=== PATIENT | female | born 1955 | race Two or more races ===

== ENCOUNTER 2016-10-15 21:53 | Emergency (ER) | payer SELFPAY ==
[2016-10-15 22:25] VITALS: BP 156/94
[2016-10-15] MEDS ORDERED: ONDANSETRON 4 MG TAB.RAPDIS PO ONE (23:22)
[2016-10-15] MEDS ORDERED: MECLIZINE HCL 25 MG TABLET PO ONE (23:22)
--- NOTE | 2016-10-15 23:24 | ER Document Report ---
ED General - General Chief Complaint: Dizziness, can't sleep Stated Complaint: FEELING DIZZY/CANNOT SLEEP Time Seen by Provider: 10/15/16 22:59 Notes: Patient is a 61 year old female that comes emergency department for chief complaint of of a strange floating sensation and lightheadedness that she gets when she turns her head to the side. She states she got up this morning and this evening, she felt a little bit of nausea with it when it happened. She denies any current symptoms. She denies head injury, focal numbness or weakness , visual changes, headache, chest pain, shortness of breath. Patient is on blood pressure medications and medications for hyperlipidemia. She is compliant with her medications. She is Lithuanian-speaking, and [employer] japanese interpreter symptom was used. TRAVEL OUTSIDE OF THE [place] IN LAST 30 DAYS: No - Related Data Allergies/Adverse Reactions: No Known Allergies Allergy (Verified 09/18/15 13:27) Home Medications: Current Home Medications Losartan/Hydrochlorothiazide [Hyzaar 100-25 Tablet] 1 each PO DAILY 10/16/16 [ History] Past Medical History - General Information source: Patient - Social History Smoking Status: Never Smoker Frequency of alcohol use: None Drug Abuse: None Lives with: Family Family History: None, Reviewed & Not Pertinent - Past Medical History Cardiac Medical History: Reports: Hx Hypertension Neurological Medical History: Reports: Hx Seizures Renal/ Medical History: Denies: Hx Peritoneal Dialysis Past Surgical History: Reports: Hx Section - 2, Hx Cholecystectomy - unsure may have been removal gall stones - Immunizations Hx Diphtheria, Pertussis, Tetanus Vaccination: Yes - unknown Review of Systems - Review of Systems Constitutional: No symptoms reported EENT: No symptoms reported Cardiovascular: See HPI Respiratory: No symptoms reported Gastrointestinal: No symptoms reported Genitourinary: No symptoms reported Female Genitourinary: No symptoms reported Musculoskeletal: No symptoms reported Skin: No symptoms reported Hematologic/Lymphatic: No symptoms reported Neurological/Psychological: See HPI Physical Exam - Vital signs Vitals: Temp Pulse BP Pulse Ox 97.8 F 79 156/94 H 98 10/15/16 22:00 10/15/16 22:00 10/15/16 22:00 10/15/16 22:00 Interpretation: Normal - General General appearance: Appears well, Alert In distress: None - Smiling, alert, well-appearing - HEENT Head: Normocephalic, Atraumatic Eyes: Normal Conjunctiva: Normal Extraocular movements intact: Yes Eyelashes: Normal Pupils: PERRL Nasal: Normal Mouth/Lips: Normal Mucous membranes: Normal Pharynx: Normal Neck: Normal - Respiratory Respiratory status: No respiratory distress Chest status: Nontender Breath sounds: Normal Chest palpation: Normal - Cardiovascular Rhythm: Regular Heart sounds: Normal auscultation Murmur: No - Abdominal Inspection: Normal Distension: No distension Bowel sounds: Normal Tenderness: Nontender. No: Tender, Guarding Organomegaly: No organomegaly - Back Back: Normal, Nontender. No: Tender, Vertebra tenderness - Extremities General upper extremity: Normal inspection, Nontender, Normal color, Normal ROM , Normal temperature General lower extremity: Normal inspection, Nontender, Normal color, Normal ROM , Normal temperature, Normal weight bearing. No: Stone's sign - Neurological Neuro grossly intact: Yes Cognition: Normal Orientation: AAOx4 [place] Coma Scale Eye Opening: Spontaneous [place] Coma Scale Verbal: Oriented [place] Coma Scale Motor: Obeys Commands [place] Coma Scale Total: 15 Speech: Normal Motor strength normal: LUE, RUE, LLE, RLE Sensory: Normal - Psychological Associated symptoms: Normal affect, Normal mood - Skin Skin Temperature: Warm Skin Moisture: Dry Skin Color: Normal Course - Re-evaluation Re-evalutation: Patient reevaluated, she states that she actually feels a little bit of the dizziness at this time. She speaks a little bit of Belgian. CBC unremarkable, chemistry shows mild hypokalemia, will supplement, EKG unremarkable, urine unremarkable. No dehydration, anemia, hypoglycemia, or other concerns noted. On reevaluation after medications patient smiling, states that her symptoms resolved. Son is now at bedside, speaks good Belgian, is interpreting, I discussed all results in detail, examination is most consistent with labyrinthitis/vestibulitis, no evidence of intracranial abnormality with normal neurological exam, patient has normal gait, is asymptomatic again. Discussed treatment, follow-up, return precautions, patient and son state understanding and agreement. - Vital Signs Vital signs: Temp Pulse Resp BP Pulse Ox 97.8 F 79 156/94 H 98 10/15/16 22:00 10/15/16 22:00 10/15/16 22:00 10/15/16 22:00 - Laboratory Result Diagrams: 10/15/16 23:33 10/15/16 23:33 Laboratory results interpreted by me: 10/15/16 23:33 Potassium 3.5 L Discharge - Discharge Clinical Impression: Dizziness Condition: Stable Disposition: HOME, SELF-CARE Additional Instructions: Your symptoms and response to treatment are very suggestive of vertigo. This is an inner ear condition, take the prescribed medication to help treat this. Your potassium was slightly low, we have given you a dose tonight. Follow-up with your primary care provider. Return to emergency department for any concerning or worsening symptoms including vomiting, severe headache, weakness on one side of your body, or any other concerning symptoms Prescriptions: Meclizine HCl [Bonine] 25 mg PO TID #24 tab.chew Forms: Return to Work Referrals: [facility] [Primary Care Provider] - Follow up as needed
[2016-10-15 23:45] LABS: ABSOLUTE BASOPHILS # (AUTO) 0.1 10^3/uL (0.0-0.2); ABSOLUTE EOSINOPHILS # (AUTO) 0.2 10^3/uL (0.0-0.6); ABSOLUTE LYMPHOCYTES (AUTO) 3.5 10^3/uL (0.5-4.7); ABSOLUTE MONOCYTES (AUTO) 0.6 10^3/uL (0.1-1.4); ABSOLUTE NEUT (AUTO) 4.6 10^3/uL (1.7-8.2); BASOPHILS % (AUTO) 1.1 % (0-2); EOSINOPHILS % (AUTO) 2.2 % (0-6); HEMATOCRIT 43.7 % (36.0-47.0); HEMOGLOBIN 14.6 g/dL (12.0-15.5); HGB HCT DIFFERENCE 0.1; LYMPHOCYTES % (AUTO) 38.4 % (13-45); MEAN CORPUSCULAR HEMOGLOBIN 30.7 pg (27.0-33.4); MEAN CORPUSCULAR HGB CONC 33.5 g/dL (32.0-36.0); MEAN CORPUSCULAR VOLUME 92 fl (80-97); RED BLOOD COUNT 4.76 10^6/uL (3.72-5.28); RED CELL DISTRIBUTION WIDTH 13.1 % (11.5-14.0); SEGMENTED NEUTROPHILS % (AUTO) 51.3 % (42-78)
[2016-10-15 23:54] LABS: APPEARANCE,URINE CLEAR; BILIRUBIN,URINE NEGATIVE (NEGATIVE); GLUCOSE, URINE NEGATIVE (NEGATIVE); KETONES,URINE NEGATIVE (NEGATIVE); LEUKOCYTE ESTERASE,URINE NEGATIVE (NEGATIVE); NITRITE,URINE NEGATIVE (NEGATIVE); PROTEIN,URINE NEGATIVE (NEGATIVE); URINE SPECIFIC GRAVITY 1.002; UROBILINOGEN,URINE NEGATIVE mg/dL (<2.0)
[2016-10-16] LABS: ANION GAP 11 (5-19); BLOOD UREA NITROGEN 9 mg/dL (7-20); CALCIUM 9.9 mg/dL (8.4-10.2); CARBON DIOXIDE 28 mmol/L (22-30); CHLORIDE 103 mmol/L (98-107); CREATININE RESULT 0.61 mg/dL (0.52-1.25); GLUCOSE 99 mg/dL (75-110); POTASSIUM 3.5 mmol/L (3.6-5.0); SODIUM 141.5 mmol/L (137-145)
[2016-10-16] MEDS ORDERED: POTASSIUM CHLORIDE 10 MEQ TABLET.SA PO ONE (00:17)
--- NOTE | 2016-10-16 08:07 | EKG REPORT ---
SEVERITY:- NORMAL ECG - SINUS RHYTHM : Confirmed by: Mejia Coffey MD 16-Oct-2016 08:07:24
== END 2016-10-16 01:32 | disposition home or self-care (01) ==
LOC: ER 21:53
DX: R42 Dizziness and giddiness (principal); E87.6 Hypokalemia; R11.0 Nausea; I10 Essential (primary) hypertension; E78.5 Hyperlipidemia, unspecified; Z79.899 Other long term (current) drug therapy
CPT/HCPCS: 93005; 99284; 36415; 85025; 80048; 81001; 93010; S0119

== ENCOUNTER 2017-03-07 11:36 | Emergency (ER) | payer MEDICAID ==
[2017-03-07] MEDS ORDERED: LORAZEPAM INJ 2 MG/1 ML VIAL ONE (12:44)
[2017-03-07] MEDS ORDERED: LEVETIRACETAM 1000 MG/NACL-ISO 1,000 MG/100 ML RTUPB IV ONE (12:50)
--- NOTE | 2017-03-07 12:50 | ER Document Report ---
ED Seizure - General Chief Complaint: Probable Seizure Stated Complaint: PROBABLE SEIZURE Time Seen by Provider: 03/07/17 12:07 Notes: 61-year-old female history of seizure disorder 20 years ago. Had a seizure not too long ago. Had another seizure today. Seizure lasted for a while. Fell and hit her head. Complaining of pain on the right side of her head. Currently not on seizure medications. Was recently started on some antibiotics for possible sinus infection. During the initial questioning with the spring tier Joni patient had a grand mal seizure. 2 mg of Ativan was given IV. - HPI Patient complains to provider of: History of seizures Quality of pain: Dull Severity: Moderate Pain Level: 3 Continued on arrival to ED: Yes Can details of seizure be obtained/verified: Yes Current seizure medications: No: Carbamazepine, Gabatin, Keppra, Lamictal, Phenytoin, Phenobarbital, Trileptal, Valproic acid, Vimpat, Other Preceding symptoms/context: denies: Recent illness/fever, Recent alcohol intake , Recent drug use, Sleep deprivation, Missed dose of meds, Changed meds or dosage, Somnolence, Other History of: denies: Brain tumor or mets, CVA, Hydrocephalus, Migraines, TBI, V/ P shunt, Other Character of seizure: Complete loss/conscious, Generalized shaking Post-ictal symptoms: Confusion, Headache Injuries: None Treatment CLOTH [employer] P[employer]ER: No: Advanced airway, Ativan, Valium, Other Associated Symptoms: Confusion - Related Data Allergies/Adverse Reactions: No Known Allergies Allergy (Verified 09/18/15 13:27) Past Medical History - General Information source: Patient - Social History Smoking Status: Former Smoker Chew tobacco use (# tins/day): No Frequency of alcohol use: None Drug Abuse: None Lives with: Family Family History: None, Reviewed & Not Pertinent Patient has suicidal ideation: No Patient has homicidal ideation: No - Past Medical History Cardiac Medical History: Reports: Hx Hypertension Neurological Medical History: Reports: Hx Seizures Renal/ Medical History: Denies: Hx Peritoneal Dialysis Past Surgical History: Reports: Hx Section - 2, Hx Cholecystectomy - unsure may have been removal gall stones - Immunizations Hx Diphtheria, Pertussis, Tetanus Vaccination: Yes - unknown Review of Systems - Review of Systems -: Yes ROS unobtainable due to patient's medical condition Physical Exam - Vital signs Vitals: Pulse 108 H 03/07/17 11:42 Interpretation: Normal - Notes Notes: In my exam patient screamed very loudly and then immediately had a witnessed legitimate seizure. Seizure lasted for 45 seconds the patient postictal. - General General appearance: Appears well, Alert, Other - Patient was alert and then developed seizure now is postictal - HEENT Head: Normocephalic, Atraumatic Eyes: Normal Pupils: PERRL Mucous membranes: Other - There is a laceration/abrasion to the right lateral tongue with small amount of bleeding - Respiratory Respiratory status: No respiratory distress Chest status: Nontender Breath sounds: Normal Chest palpation: Normal - Cardiovascular Rhythm: Regular Heart sounds: Normal auscultation Murmur: No - Abdominal Inspection: Normal Distension: No distension Bowel sounds: Normal Tenderness: Nontender Organomegaly: No organomegaly - Back Back: Normal, Nontender - Extremities General upper extremity: Normal inspection, Nontender, Normal color, Normal ROM , Normal temperature General lower extremity: Normal inspection, Nontender, Normal color, Normal ROM , Normal temperature, Normal weight bearing. No: Stone's sign - Neurological Neuro grossly intact: Yes Cognition: Normal Orientation: Disoriented to events [place] Coma Scale Eye Opening: Spontaneous [place] Coma Scale Verbal: Confused [place] Coma Scale Motor: Localizes to Pain [place] Coma Scale Total: 13 Cranial nerves: Normal Motor strength normal: LUE, RUE, LLE, RLE Sensory: Normal - Psychological Associated symptoms: Normal affect, Normal mood - Skin Skin Temperature: Warm Skin Moisture: Dry Skin Color: Normal Course - Re-evaluation Re-evalutation: 03/07/17 14:20 Patient had witnessed seizure. Will will get head CT, C-spine, labs, Ativan and reassess. She has had a change in her seizure pattern with increased frequency. Will load with Keppra. May need to be admitted with her head injury and repeat seizure. Currently there is no neurologist available. 03/07/17 14:21 Laboratory 03/07/17 03/07/17 03/07/17 11:50 11:50 11:50 WBC 10.9 H RBC 4.68 Hgb 14.7 Hct 43.5 MCV 93 MCH 31.3 MCHC 33.7 RDW 13.4 Plt Count 286 Seg Neutrophils % 52.4 Lymphocytes % 40.4 Monocytes % 4.7 Eosinophils % 1.8 Basophils % 0.7 Absolute Neutrophils 5.7 Absolute Lymphocytes 4.4 Absolute Monocytes 0.5 Absolute Eosinophils 0.2 Absolute Basophils 0.1 Sodium 141.3 Potassium 3.3 L Chloride 102 Carbon Dioxide 26 Anion Gap 13 BUN 17 Creatinine 0.79 Est GFR ( Amer) > 60 Est GFR (Non-Af Amer) > 60 Glucose 121 H Calcium 9.4 Total Bilirubin 0.5 Direct Bilirubin 0.4 Neonat Total Bilirubin Not Reportable Neonat Direct Bilirubin Not Reportable Neonat Indirect Bili Not Reportable AST 25 ALT 28 Alkaline Phosphatase 107 Troponin I 0.054 Total Protein 7.0 Albumin 4.4 Urine Color Urine Appearance Urine pH Ur Specific [place] Urine Protein Urine Glucose (UA) Urine Ketones Urine Blood Urine Nitrite Urine Bilirubin Urine Urobilinogen Ur Leukocyte Esterase Urine WBC (Auto) Urine RBC (Auto) Squamous Epi Cells Auto Urine Mucus (Auto) Urine Ascorbic Acid 03/07/17 13:19 WBC RBC Hgb Hct MCV MCH MCHC RDW Plt Count Seg Neutrophils % Lymphocytes % Monocytes % Eosinophils % Basophils % Absolute Neutrophils Absolute Lymphocytes Absolute Monocytes Absolute Eosinophils Absolute Basophils Sodium Potassium Chloride Carbon Dioxide Anion Gap BUN Creatinine Est GFR ( Amer) Est GFR (Non-Af Amer) Glucose Calcium Total Bilirubin Direct Bilirubin Neonat Total Bilirubin Neonat Direct Bilirubin Neonat Indirect Bili AST ALT Alkaline Phosphatase Troponin I Total Protein Albumin Urine Color YELLOW Urine Appearance CLEAR Urine pH 5.0 Ur Specific [place] 1.017 Urine Protein NEGATIVE Urine Glucose (UA) NEGATIVE Urine Ketones NEGATIVE Urine Blood SMALL H Urine Nitrite NEGATIVE Urine Bilirubin NEGATIVE Urine Urobilinogen NEGATIVE Ur Leukocyte Esterase NEGATIVE Urine WBC (Auto) 1 Urine RBC (Auto) 1 Squamous Epi Cells Auto <1 Urine Mucus (Auto) RARE Urine Ascorbic Acid NEGATIVE 03/07/17 14:28 Patient has a cortical injury on the right hemisphere consistent with a small intraparenchymal bleed according to verbal report by radiologist. Attempting to secure transport immediately at this time. 03/07/17 15:[address] 03/07/17 12:49 IMPRESSION: Degenerative disc disease with mild spondylosis and facet arthropathy. Head CT 03/07/17 12:49 IMPRESSION: There are findings in the right parietal lobe concerning for cortical contusion. EVIDENCE OF ACUTE STROKE: NO. Dr. Nunez is a ER to ER transfer/trauma team. Did not have neuro ICU available here. No neurologist. Will transfer at this time. - Vital Signs Vital signs: Temp Pulse Resp BP Pulse Ox 97.3 F 108 H 20 135/92 H 93 03/07/17 11:55 03/07/17 11:55 03/07/17 13:27 03/07/17 13:27 03/07/17 13:27 - Laboratory Result Diagrams: 03/07/17 11:50 03/07/17 11:50 Laboratory results interpreted by me: 03/07/17 03/07/17 03/07/17 11:50 11:50 13:19 WBC 10.9 H Potassium 3.3 L Glucose 121 H Urine Blood SMALL H Critical Care Note - Critical Care Note Total time excluding time spent on procedures (mins): 90 Comments: Intracranial hemorrhage, seizure disorder Discharge - Discharge Clinical Impression: Contusion of cortex of right cerebral hemisphere, Seizure Condition: Fair Disposition: [facility] Referrals: TANIYA CARODNA MD [Primary Care Provider] - Follow up as needed
[2017-03-07 12:56] LABS: ABSOLUTE BASOPHILS # (AUTO) 0.1 10^3/uL (0.0-0.2); ABSOLUTE EOSINOPHILS # (AUTO) 0.2 10^3/uL (0.0-0.6); ABSOLUTE LYMPHOCYTES (AUTO) 4.4 10^3/uL (0.5-4.7); ABSOLUTE MONOCYTES (AUTO) 0.5 10^3/uL (0.1-1.4); ABSOLUTE NEUT (AUTO) 5.7 10^3/uL (1.7-8.2); BASOPHILS % (AUTO) 0.7 % (0-2); EOSINOPHILS % (AUTO) 1.8 % (0-6); HEMATOCRIT 43.5 % (36.0-47.0); HEMOGLOBIN 14.7 g/dL (12.0-15.5); HGB HCT DIFFERENCE 0.6; LYMPHOCYTES % (AUTO) 40.4 % (13-45); MEAN CORPUSCULAR HEMOGLOBIN 31.3 pg (27.0-33.4); MEAN CORPUSCULAR HGB CONC 33.7 g/dL (32.0-36.0); MEAN CORPUSCULAR VOLUME 93 fl (80-97); MONOCYTES % (AUTO) 4.7 % (3-13); RED BLOOD COUNT 4.68 10^6/uL (3.72-5.28); RED CELL DISTRIBUTION WIDTH 13.4 % (11.5-14.0); SEGMENTED NEUTROPHILS % (AUTO) 52.4 % (42-78); WHITE BLOOD COUNT 10.9 10^3/uL (4.0-10.5)
[2017-03-07 13:28] LABS: ALANINE AMINOTRANSFERASE 28 U/L (9-52); ALBUMIN 4.4 g/dL (3.5-5.0); ALKALINE PHOSPHATASE 107 U/L (38-126); ANION GAP 13 (5-19); ASPARTATE AMINO TRANSFERASE 25 U/L (14-36); BILIRUBIN,DIRECT 0.4 mg/dL (0.0-0.4); BILIRUBIN,TOTAL 0.5 mg/dL (0.2-1.3); BLOOD UREA NITROGEN 17 mg/dL (7-20); CALCIUM 9.4 mg/dL (8.4-10.2); CARBON DIOXIDE 26 mmol/L (22-30); CHLORIDE 102 mmol/L (98-107); CREATININE RESULT 0.79 mg/dL (0.52-1.25); GLUCOSE 121 mg/dL (75-110); POTASSIUM 3.3 mmol/L (3.6-5.0); SODIUM 141.3 mmol/L (137-145)
[2017-03-07 14:00] LABS: APPEARANCE,URINE CLEAR; BILIRUBIN,URINE NEGATIVE (NEGATIVE); GLUCOSE, URINE NEGATIVE (NEGATIVE); KETONES,URINE NEGATIVE (NEGATIVE); LEUKOCYTE ESTERASE,URINE NEGATIVE (NEGATIVE); NITRITE,URINE NEGATIVE (NEGATIVE); PROTEIN,URINE NEGATIVE (NEGATIVE); URINE SPECIFIC GRAVITY 1.017; UROBILINOGEN,URINE NEGATIVE mg/dL (<2.0)
[2017-03-07] MEDS ORDERED: LORAZEPAM INJ 2 MG/1 ML VIAL IV ONE (14:00)
--- NOTE | 2017-03-07 14:28 | RADIOLOGY REPORT (SQ) ---
EXAM DESCRIPTION: CT HEAD WITHOUT COMPLETED DATE/TIME: 03/07/2017 1:54 pm REASON FOR STUDY: seizure, fall, contusion COMPARISON: 06/21/2014 TECHNIQUE: Axial images acquired through the brain without intravenous contrast. Images reviewed wi th bone, brain and subdural windows. Images stored on PACS. All CT scanners at this facility use dose modulation, iterative reconstruction, and/or weight based d osing when appropriate to reduce radiation dose to as low as reasonably achievable (ALARA). [facility]: Dose Right [facility]: CareDose [facility]: Dose Right [facility]: Teradose 4D [facility]: Smart [employer] RADIATION DOSE: CT Rad equipment meets quality standard of care and radiation dose reduction techniq ues were employed. CTDIvol: 64.6 mGy. DLP: 1292 mGy-cm. mGy. LIMITATIONS: None. FINDINGS: VENTRICLES: Normal size and contour. CEREBRUM: There is a limited area of increased attenuation in the periphery of the right parietal lob e seen best on image 29 series 2 through image 32 series 2. Few scattered areas of low density in the white matter most likely chronic small vessel ischemic changes. CEREBELLUM: No masses. No hemorrhage. No alteration of density. No evidence for acute infarction. EXTRAAXIAL SPACES: No fluid collections. No masses. ORBITS AND GLOBE: No intra- or extraconal masses. Normal contour of globe without masses. CALVARIUM: No fracture. PARANASAL SINUSES: No fluid or mucosal thickening. SOFT TISSUES: No mass or hematoma. OTHER: No other significant finding. IMPRESSION: There are findings in the right parietal lobe concerning for cortical contusion. EVIDENCE OF ACUTE STROKE: NO. COMMENT: Findings were discussed with the ordering physician at 0228 hours 1400 hours on this date. Quality ID # [id number]: Final reports with documentation of one or more dose reduction techniques (e.g., Au tomated exposure control, adjustment of the mA and/or kV according to patient size, use of iterative reconstruction technique) TECHNICAL DOCUMENTATION: JOB ID: [id number] [employer]- All Rights Reserved
--- NOTE | 2017-03-07 14:34 | RADIOLOGY REPORT (SQ) ---
EXAM DESCRIPTION: CT CERVICAL SPINE WITHOUT COMPLETED DATE/TIME: 03/07/2017 1:54 pm REASON FOR STUDY: seizure, fall, contusion COMPARISON: None. TECHNIQUE: Axial images acquired through the cervical spine without intravenous contrast. Images re viewed with lung, soft tissue and bone windows. Reconstructed coronal and sagittal MPR images review ed. Images stored on PACS. All CT scanners at this facility use dose modulation, iterative reconstruction, and/or weight based d osing when appropriate to reduce radiation dose to as low as reasonably achievable (ALARA). [facility]: Dose Right [facility]: CareDose [facility]: Dose Right [facility]: Teradose 4D [facility]: Smart [employer] RADIATION DOSE: CT Rad equipment meets quality standard of care and radiation dose reduction techniq ues were employed. CTDIvol: 21.8 mGy. DLP: 460 mGy-cm. mGy. LIMITATIONS: None. FINDINGS: ALIGNMENT: Anatomic. MINERALIZATION: Normal. VERTEBRAL BODIES: No fractures or dislocation. DISCS: Disc spaces are narrowed from C5-C7 with anterior and posterior osteophytes. FACETS, LATERAL MASSES, POSTERIOR ELEMENTS: Hypertrophic facet changes are present on the left at C7- T1. HARDWARE: None in the spine. VISUALIZED RIBS: No fractures. LUNG APICES AND SOFT TISSUES: No significant or acute findings. OTHER: No other significant finding. IMPRESSION: Degenerative disc disease with mild spondylosis and facet arthropathy. TECHNICAL DOCUMENTATION: JOB ID: [id number] Quality ID # [id number]: Final reports with documentation of one or more dose reduction techniques (e.g., Au tomated exposure control, adjustment of the mA and/or kV according to patient size, use of iterative reconstruction technique) 2010 [employer]- All Rights Reserved
--- NOTE | 2017-03-07 14:39 | EKG REPORT ---
SEVERITY:- ABNORMAL ECG - SINUS TACHYCARDIA PROBABLE LEFT ATRIAL ABNORMALITY BORDERLINE LEFT AXIS DEVIATION PROBABLE ANTEROSEPTAL INFARCT, AGE INDETERM : Confirmed by: Heather Michel MD 07-Mar-2017 14:38:08
[2017-03-07 15:24] VITALS: BP 148/86
== END 2017-03-07 15:40 | disposition short-term general hospital (02) ==
LOC: ER 11:36
DX: S06.2X9A Diffuse traumatic brain injury with loss of consciousness of unspecified duration, initial encounter (principal); W18.30XA Fall on same level, unspecified, initial encounter; G40.909 Epilepsy, unspecified, not intractable, without status epilepticus; I10 Essential (primary) hypertension; Z87.891 Personal history of nicotine dependence; Z90.49 Acquired absence of other specified parts of digestive tract
CPT/HCPCS: 93005; 99285; 96375; 96365; 36415; 85025; 80053; 81001; 84484; 70450; 72125; 93010; J2060; J1953

== ENCOUNTER 2018-01-10 17:12 | Emergency (ER) | payer SELFPAY ==
[2018-01-10] MEDS ORDERED: LIDOCAINE 4%/TETRACAINE 0.5%/EPI 0.18% 5 ML TOPICAL SOLN TOP ONE (17:57)
--- NOTE | 2018-01-10 18:44 | ER Document Report ---
ED General - General Chief Complaint: Toothache Stated Complaint: FACIAL PAIN Time Seen by Provider: 01/10/18 17:38 Mode of Arrival: Ambulatory Information source: Patient, Relative Notes: Patient is a 62-year-old morbidly obese female comes emergency room complaining of right-sided nasal pain. Originally the tree has no red facial pain. She is accompanied by a family member who speaks perfect Tongan and speaks Khmer. Patient was speaks broken Tongan. Interpretation is done through the family member. According to report patient states she started with pain on the right side of her nose area about 10 days ago. She has been attempting to use home remedies without any success. She states that it is so sensitive it shoots pain up through her eyes into her head. She is unable to touch the side of her nose specifically when one spot. TRAVEL OUTSIDE OF THE [place] IN LAST 30 DAYS: No - HPI Onset: Other - 10 days Onset/Duration: Gradual, Persistent, Worse Quality of pain: No pain Severity: Severe Pain Level: 4 Associated symptoms: Other - Nasal pain Exacerbated by: Other - Touching Relieved by: Denies Similar symptoms previously: No Recently seen / treated by doctor: No - Related Data Allergies/Adverse Reactions: No Known Allergies Allergy (Verified 01/10/18 17:13) Past Medical History - General Information source: Patient, Relative - Social History Smoking Status: Never Smoker Cigarette use (# per day): No Chew tobacco use (# tins/day): No Smoking Education Provided: No Frequency of alcohol use: None Drug Abuse: None Lives with: Family Family History: None, Reviewed & Not Pertinent Patient has suicidal ideation: No Patient has homicidal ideation: No - Past Medical History Cardiac Medical History: Reports: Hx Hypertension Neurological Medical History: Reports: Hx Seizures Renal/ Medical History: Denies: Hx Peritoneal Dialysis Past Surgical History: Reports: Hx Section - 2, Hx Cholecystectomy - unsure may have been removal gall stones - Immunizations Hx Diphtheria, Pertussis, Tetanus Vaccination: Yes - unknown Review of Systems - Review of Systems Constitutional: No symptoms reported EENT: Nose pain Cardiovascular: No symptoms reported Respiratory: No symptoms reported Gastrointestinal: No symptoms reported Genitourinary: No symptoms reported Female Genitourinary: No symptoms reported Musculoskeletal: No symptoms reported Skin: No symptoms reported Hematologic/Lymphatic: No symptoms reported Neurological/Psychological: No symptoms reported -: Yes All other systems reviewed and negative Physical Exam - Vital signs Vitals: Temp Pulse Resp BP Pulse Ox 98.2 F 89 14 144/90 H 96 01/10/18 17:15 01/10/18 17:15 01/10/18 17:15 01/10/18 17:15 01/10/18 17:15 Interpretation: Normal, Hypertensive - Notes Notes: Patient is well-nourished well-developed moderately obese female. She appears in moderate amount of discomfort. - General General appearance: Alert, Anxious - HEENT Head: Normocephalic, Atraumatic Eyes: Normal Conjunctiva: Normal Ears: Normal External canal: Normal Tympanic membrane: Normal Sinus: Normal Nasal: Swelling, Other - Examination patient's area of pain discomfort shows it to be the right side of the nose. Specifically just above the crease. It is exceptionally sensitive to touch. Light touch send the patient off the bed. Further exam of the internal nare in the right side shows moderate amount of hair but no other really major abnormalities that can be seen with with the autoscope. Hyper illumination from the inside out shows some thickening in the area where she is sensitive. There is no sign of any lesions apparent to shingles. The hypersensitive area seems to only be on the outside compressing from the inside there is no notable sensitivity or pain. Manipulation around the area causes apprehension but does not cause any pain until you hit that specific spot.. No: Normal, Clear rhinorrhea Mouth/Lips: Normal Mucous membranes: Normal Pharynx: Normal - Respiratory Respiratory status: No respiratory distress Chest status: Nontender Breath sounds: Normal. No: Rales, Rhonchi, Stridor, Wheezing Chest palpation: Normal - Cardiovascular Rhythm: Regular Heart sounds: Normal auscultation Murmur: No - Neurological Neuro grossly intact: Yes Cognition: Normal Orientation: AAOx4 Racquel Coma Scale Eye Opening: Spontaneous Racquel Coma Scale Verbal: Oriented [place] Coma Scale Motor: Obeys Commands [place] Coma Scale Total: 15 Speech: Normal - Skin Skin Temperature: Warm Skin Moisture: Dry Skin Color: Normal, Other - The area around the right lateral side of the nose shows some mild thickening but no overt infectious type findings. Reexamination underneath the nose and in the nare does show some erythematous areas that are questionable for a cellulitic type presentation. Course - Re-evaluation Re-evalutation: 01/10/18 18:47 After my examination I was not sure which direction to go into. I went and consulted with and he came in and reexamined the patient with me. He was as stone as I was at first. We elected to apply let to the area both inside and outside which did reduce patient's pain substantially. Reexamination we still feel this is a folliculitis type presentation and we will put her on lidocaine for numbing sensation. We will also add Bactrim for infectious purposes. And we will place her on some gabapentin for bed. We will have her return to ER if this does not work. She is also use warm compresses 3 times a day. - Vital Signs Vital signs: Temp Pulse Resp BP Pulse Ox 98.2 F 89 14 144/90 H 96 01/10/18 17:15 01/10/18 17:15 01/10/18 17:15 01/10/18 17:15 01/10/18 17:15 Discharge - Discharge Clinical Impression: Nasal folliculitis Condition: Stable Disposition: HOME, SELF-CARE Instructions: Folliculitis ([facility]) Additional Instructions: Home and rest. Medication as prescribed. Use the lidocaine gel as needed for numbing purposes. You may apply to 3 times a day. Also apply warm moist compresses to the area 3-4 times a day. For 10-15 minutes. Take the gabapentin at night before bed for sleep. And the pain medication as needed. Return to ER if you have any concerns or problems or if it does not seem to be getting better after the first 48 hours. Also highly suggest follow-up with your primary care for further investigation if we have not solve this problem totally. Prescriptions: Gabapentin 800 mg PO HSP PRN #30 capsule PRN Reason: Hydrocodone/Acetaminophen [Meldrim 5-325 mg Tablet] 1 tab PO Q6 #12 tablet Sulfamethoxazole/Trimethoprim [Bactrim Ds Tablet] 1 each PO BID #20 tablet
[2018-01-10] MEDS ORDERED: LIDOCAINE 2% JELLY 30 ML TUBE TOP ONE (18:56)
[2018-01-10] MEDS ORDERED: LIDOCAINE 2% JELLY 5 ML TUBE ONE (19:38)
[2018-01-10 20:06] VITALS: BP 136/89
== END 2018-01-10 20:07 | disposition home or self-care (01) ==
LOC: ER 17:12
DX: L73.9 Follicular disorder, unspecified (principal); E66.01 Morbid (severe) obesity due to excess calories; Z68.29 Body mass index [BMI] 29.0-29.9, adult; I10 Essential (primary) hypertension
CPT/HCPCS: 99282; J3490

== ENCOUNTER 2018-02-28 18:26 | Emergency (ER) | payer SELFPAY ==
--- NOTE | 2018-02-28 20:08 | ER Document Report ---
ED Extremity Problem, Upper - General Chief Complaint: Shoulder Injury Stated Complaint: COLLARBONE PAIN/SWELLING Time Seen by Provider: 02/28/18 19:33 Mode of Arrival: Ambulatory Information source: Patient, Relative Notes: History translated with the help of son at bedside. Patient is a Icelandic speaker. Patient given option of clinical nurse services and declined, preferred for son to translate. Patient is seated comfortably in bed in no acute distress, with even and unlabored breathing. Patient is a 62-year-old female presenting to the emergency department work for left-sided collarbone pain for 3 days with no history of injury to the area. 3 days ago she woke up with the pain and felt that her shoulder and trapezius area were slightly more swollen than usual, and her range of motion was limited in that shoulder. She describes the pain as aching and tight. She denies all other systemic symptoms including fever, headache, nausea and vomiting. She has tried using icy hot and warm rags on the area but it has not helped. Pain is worsened with movement and alleviated with rest. She has experienced pain like this before in her right collarbone. She has a PCP who she sees regularly. TRAVEL OUTSIDE OF THE [place] IN LAST 30 DAYS: No - HPI Patient complains to provider of: Pain, Swelling, Left, Clavicle, Shoulder Onset: Other Recent injury: No Where: Home Quality of pain: Achy Severity of pain: Moderate Pain Level: 2 Associated symptoms: None Exacerbated by: Movement Relieved by: Rest Similar symptoms previously: Yes - similar symptoms in R clavicle Recently seen / treated by doctor: No - Related Data Allergies/Adverse Reactions: No Known Allergies Allergy (Verified 02/28/18 18:30) Home Medications: losartan-hctz, diazepam Past Medical History - General Information source: Relative - Social History Smoking Status: Former Smoker Cigarette use (# per day): No - has 7.5 py Frequency of alcohol use: None Drug Abuse: None Occupation: works in kitchen Lives with: Family Family History: None, Reviewed & Not Pertinent Patient has suicidal ideation: No Patient has homicidal ideation: No - Medical History Notes: seizure 1 year ago with fall and intracranial hemorrhage, HTN - Past Medical History Cardiac Medical History: Reports: Hx Hypertension Pulmonary Medical History: Reports: None EENT Medical History: Reports: None Neurological Medical History: Reports: Hx Seizures Endocrine Medical History: Reports: None Renal/ Medical History: Reports: None. Denies: Hx Peritoneal Dialysis Malignancy Medical History: Reports: None GI Medical History: Reports: None Musculoskeletal Medical History: Reports None Skin Medical History: Reports None Psychiatric Medical History: Reports: None Traumatic Medical History: Reports: Other - intracranial hemorrhage after fall during seizure Infectious Medical History: Reports: None Past Surgical History: Reports: Hx Section - 2, Hx Cholecystectomy - unsure may have been removal gall stones - Immunizations Hx Diphtheria, Pertussis, Tetanus Vaccination: Yes - unknown Review of Systems - Review of Systems Constitutional: No symptoms reported. denies: Fever, Recent illness EENT: No symptoms reported Cardiovascular: No symptoms reported Respiratory: No symptoms reported Gastrointestinal: No symptoms reported Genitourinary: No symptoms reported Female Genitourinary: No symptoms reported Musculoskeletal: See HPI, Muscle stiffness Skin: No symptoms reported Hematologic/Lymphatic: No symptoms reported Neurological/Psychological: No symptoms reported. denies: Weakness, Headaches Physical Exam - Vital signs Vitals: Temp Pulse Resp BP Pulse Ox 97.8 F 97 20 148/81 H 100 02/28/18 18:56 02/28/18 18:56 02/28/18 18:56 02/28/18 18:56 02/28/18 18:56 - General General appearance: Appears well, Alert In distress: None - HEENT Head: Normocephalic, Atraumatic Eyes: Normal Extraocular movements intact: Yes - Respiratory Respiratory status: No respiratory distress Chest status: Nontender Breath sounds: Normal Chest palpation: Normal - Cardiovascular Rhythm: Regular Heart sounds: Normal auscultation, S1 appreciated, S2 appreciated Murmur: No Normal capillary refill: Yes - Abdominal Inspection: Normal Distension: No distension - Back Back: Normal, Nontender - Extremities General upper extremity: Other - Left shoulder has mild erythema noted along the superior portion of the trapezius, 2x 1 cm lesions noted along left lateral portion of the collarbone, no swelling noted along either clavicle, both shoulders show no deformities, left shoulder range of motion intact but pain noted with adduction past 90 degrees and forward extension past 90 degreees, right shoulder range of motion intact - Neurological Neuro grossly intact: Yes Cognition: Normal Orientation: AAOx4 Racquel Coma Scale Eye Opening: Spontaneous Racquel Coma Scale Verbal: Oriented [place] Coma Scale Motor: Obeys Commands [place] Coma Scale Total: 15 - Psychological Associated symptoms: Normal affect, Normal mood - Skin Skin Temperature: Warm Skin Moisture: Dry Skin Color: Normal Skin irregularity: Lesion Location of irregularity: Other - L lateral clavicle on superior aspect Character of irregularity: Macular, Papular Course - Re-evaluation Re-evalutation: 02/28/18 20:45 Patient with what appears to be musculoskeletal pain to the left trapezius area. Pain is reproduced with movement of left upper extremity and left lateral rotation of the head. No meningismus. No shoulder tenderness. No chest pain or dyspnea. Patient does have faint erythematous skin rash over the area of tenderness that is concerning for possible early shingles. Discussed this possibility with patient and decision was made to start antiviral medication but also to cover with pain medicine to help with her musculoskeletal pain. - Vital Signs Vital signs: Temp Pulse Resp BP Pulse Ox 98.0 F 89 20 139/77 H 99 02/28/18 20:58 02/28/18 20:58 02/28/18 20:58 02/28/18 20:58 02/28/18 20:58 Discharge - Discharge Clinical Impression: Muscle spasm of left shoulder, Pain of left clavicle, Skin rash Condition: Stable Disposition: HOME, SELF-CARE Instructions: Muscle Relaxers ([facility]), Muscle Strain ([facility]), Shingles ([facility]) Additional Instructions: Return immediately for any new or worsening symptoms Followup with your primary care provider, call tomorrow to make a followup appointment You may use topical [id number] lidocaine patch to help with your pain symptoms. Prescriptions: Cyclobenzaprine HCl [Flexeril 10 Mg Tablet] 10 mg PO TID #15 tablet Valacyclovir HCl [Valacyclovir] 1,000 mg PO TID PRN #21 tablet PRN Reason: Referrals: KATHIA RUIZ MD [ACTIVE STAFF] - 03/02/18
[2018-02-28] MEDS ORDERED: LIDOCAINE 5% (700 MG) TRANSDERMAL ADH..PATCH TP ONE (20:41)
[2018-02-28] MEDS ORDERED: VALACYCLOVIR HCL 500 MG TABLET PO ONE (20:41)
[2018-02-28] MEDS ORDERED: CYCLOBENZAPRINE HCL 10 MG TABLET PO ONE (20:41)
[2018-02-28 21:01] VITALS: BP 139/77
== END 2018-02-28 21:01 | disposition home or self-care (01) ==
LOC: ER 18:26
DX: M25.512 Pain in left shoulder (principal); R21 Rash and other nonspecific skin eruption; M62.838 Other muscle spasm; I10 Essential (primary) hypertension; Z90.49 Acquired absence of other specified parts of digestive tract
CPT/HCPCS: 99283

== ENCOUNTER 2019-08-09 13:22 | Emergency (ER) | payer MEDICARE, MEDICAID ==
--- NOTE | 2019-08-09 13:42 | ER Document Report ---
ED Medical Screen (RME) - General Chief Complaint: Toothache Stated Complaint: MOUTH/FACIAL PAIN Time Seen by Provider: 08/09/19 13:28 Mode of Arrival: Ambulatory Information source: Patient Notes: 64-year-old Upper Sorbian-speaking woman presents to the emergency department chief complaint of right-sided facial swelling. [employer] service was used for patient interview. Patient reports pain ongoing for the last few days, states pain and discomfort radiates up into her right cheek, nose and behind her eye. She denies any dental pain. She denies any fever or drainage from any of the areas of discomfort. She states she has never had anything like this before. No obvious swelling noted in triage. Tenderness upon palpation over maxillary sinuses. I have greeted and performed a rapid initial assessment of this patient. A comprehensive ED assessment and evaluation of the patient, analysis of test results and completion of the medical decision making process will be conducted by additional ED providers. I have specifically instructed the patient or family members with the patient to immediately return to any nursing staff should anything change in the patient's condition or with their chief complaint. TRAVEL OUTSIDE OF THE [place] IN LAST 30 DAYS: No - Related Data Allergies/Adverse Reactions: No Known Allergies Allergy (Verified 02/28/18 18:30) Past Medical History - Past Medical History Cardiac Medical History: Reports: Hx Hypertension Neurological Medical History: Reports: Hx Seizures Renal/ Medical History: Denies: Hx Peritoneal Dialysis Past Surgical History: Reports: Hx Section - 2, Hx Cholecystectomy - unsure may have been removal gall stones - Immunizations Hx Diphtheria, Pertussis, Tetanus Vaccination: Yes - unknown
[2019-08-09] MEDS ORDERED: KETOROLAC TROMETHAMINE INJ/PF 30 MG/1 ML SDV IV ONE (14:31)
[2019-08-09 14:38] LABS: ABSOLUTE BASOPHILS # (AUTO) 0.1 10^3/uL (0.0-0.2); ABSOLUTE EOSINOPHILS # (AUTO) 0.1 10^3/uL (0.0-0.6); ABSOLUTE LYMPHOCYTES (AUTO) 2.7 10^3/uL (0.5-4.7); ABSOLUTE MONOCYTES (AUTO) 0.6 10^3/uL (0.1-1.4); ABSOLUTE NEUT (AUTO) 4.7 10^3/uL (1.7-8.2); BASOPHILS % (AUTO) 1.2 % (0-2); EOSINOPHILS % (AUTO) 1.3 % (0-6); HEMATOCRIT 41.2 % (36.0-47.0); LYMPHOCYTES % (AUTO) 33.4 % (13-45); MEAN CORPUSCULAR HEMOGLOBIN 30.8 pg (27.0-33.4); MEAN CORPUSCULAR VOLUME 91 fl (80-97); MONOCYTES % (AUTO) 6.8 % (3-13); PLATELET COUNT 286 10^3/uL (150-450); RED BLOOD COUNT 4.56 10^6/uL (3.72-5.28); RED CELL DISTRIBUTION WIDTH 13.7 % (11.5-14.0); SEGMENTED NEUTROPHILS % (AUTO) 57.3 % (42-78); TOTAL CELLS COUNTED % (AUTO) 100 %; WHITE BLOOD COUNT 8.2 10^3/uL (4.0-10.5)
[2019-08-09 15:05] LABS: ALBUMIN 4.1 g/dL (3.5-5.0); ALKALINE PHOSPHATASE 99 U/L (38-126); ASPARTATE AMINO TRANSFERASE 28 U/L (14-36); BILIRUBIN,TOTAL 0.5 mg/dL (0.2-1.3); BLOOD UREA NITROGEN 8 mg/dL (7-20); CALCIUM 9.3 mg/dL (8.4-10.2); GLUCOSE 113 mg/dL (75-110); POTASSIUM 4.6 mmol/L (3.6-5.0); TOTAL PROTEIN 7.4 g/dL (6.3-8.2)
[2019-08-09 15:10] LABS: ANION GAP 6 (5-19); CARBON DIOXIDE 30 mmol/L (22-30); CHLORIDE 103 mmol/L (98-107)
--- NOTE | 2019-08-09 15:10 | ER Document Report ---
ED General - General Chief Complaint: Facial Swelling Stated Complaint: MOUTH/FACIAL PAIN Time Seen by Provider: 08/09/19 13:28 Mode of Arrival: Ambulatory TRAVEL OUTSIDE OF THE [place] IN LAST 30 DAYS: No - HPI Notes: Patient presents with several days of right-sided face pain. She states that she has severe facial pain. It is worse when being touched and better if not touched. She denies any vision changes. No vomiting. No fevers. No cough or congestion. No known COVID virus exposures. She states she has had no trauma to this area. She states she has felt congested. The pain radiates throughout the right side of her face and is severe. It is a sharp sensation. No significant vision changes. - Related Data Allergies/Adverse Reactions: No Known Allergies Allergy (Verified 02/28/18 18:30) Past Medical History - General Information source: Patient - Social History Smoking Status: Former Smoker Frequency of alcohol use: None Drug Abuse: None Family History: None, Reviewed & Not Pertinent Patient has suicidal ideation: No Patient has homicidal ideation: No - Past Medical History Cardiac Medical History: Reports: Hx Hypertension Neurological Medical History: Reports: Hx Seizures Renal/ Medical History: Denies: Hx Peritoneal Dialysis Past Surgical History: Reports: Hx Section - 2, Hx Cholecystectomy - unsure may have been removal gall stones - Immunizations Hx Diphtheria, Pertussis, Tetanus Vaccination: Yes - unknown Review of Systems - Review of Systems Constitutional: denies: Chills, Fever Cardiovascular: denies: Chest pain, Dyspnea Respiratory: denies: Cough, Short of breath -: Yes All other systems reviewed and negative Physical Exam - Vital signs Vitals: Temp Pulse Resp BP Pulse Ox 98.0 F 86 18 198/105 H 98 08/09/19 13:29 08/09/19 13:29 08/09/19 13:29 08/09/19 13:29 08/09/19 13:29 Interpretation: Hypertensive - General General appearance: Appears well, Alert - HEENT Head: Normocephalic, Atraumatic Eyes: Normal Conjunctiva: Normal Cornea: Normal Eyelashes: Normal Pupils: PERRL Nasal: Normal Mouth/Lips: Normal Mucous membranes: Moist Pharynx: Normal Neck: Normal Notes: The face has a normal inspection bilaterally. No significant swelling is appreciated. However she has severe pain to any touch to the maxillary and frontal areas on the right side. The mandibular area on the right side is not tender. - Respiratory Respiratory status: No respiratory distress Chest status: Nontender Breath sounds: Normal Chest palpation: Normal - Cardiovascular Rhythm: Regular Heart sounds: Normal auscultation Murmur: No - Abdominal Inspection: Normal Distension: No distension Bowel sounds: Normal Tenderness: Nontender Organomegaly: No organomegaly - Back Back: Normal, Nontender - Extremities General upper extremity: Normal inspection, Nontender, Normal color, Normal ROM, Normal temperature General lower extremity: Normal inspection, Nontender, Normal color, Normal ROM, Normal temperature, Normal weight bearing. No: Stone's sign - Neurological Neuro grossly intact: Yes Cognition: Normal Orientation: AAOx4 Racquel Coma Scale Eye Opening: Spontaneous Racquel Coma Scale Verbal: Oriented [place] Coma Scale Motor: Obeys Commands Racquel Coma Scale Total: 15 Speech: Normal Motor strength normal: LUE, RUE, LLE, RLE Sensory: Normal - Psychological Associated symptoms: Normal affect, Normal mood - Skin Skin Temperature: Warm Skin Moisture: Dry Skin Color: Normal Course - Re-evaluation Re-evalutation: 08/09/19 16:58 Patient presents with right-sided facial pain. She has no evidence of infectious process. No evidence of tooth abnormality. No evidence of sinus abnormality. Her presentation is not consistent with allergic reaction. I see no evidence of any significant abnormality on exam. Laboratories are essentially unremarkable. CT is also unremarkable. At this time I am going to treat her for trigeminal neuralgia and refer her to neurology. Because am unsure how have the exact diagnosis I have stressed to her the importance of follow-up and that if she is unable to arrange for that she is to return to the emergency department for follow-up. going to give keflex just in case early tooth infection that is not evident on exam. pt will not allow me to examine teeth due to pain and grabs my hand everytime I try to exam oral cavity. 08/09/19 17:00 - Vital Signs Vital signs: Temp Pulse Resp BP Pulse Ox 98.0 F 86 18 198/105 H 98 08/09/19 13:29 08/09/19 13:29 08/09/19 13:29 08/09/19 13:29 08/09/19 13:29 - Laboratory Result Diagrams: 08/09/19 14:15 08/09/19 14:15 Laboratory results interpreted by me: 08/09/19 14:15 Glucose 113 H - Diagnostic Test Radiology reviewed: Image reviewed, Reports reviewed Discharge - Discharge Clinical Impression: Trigeminal neuralgia of right side of face Condition: Stable Disposition: HOME, SELF-CARE Instructions: Oral Narcotic Medication ([facility]) Additional Instructions: Please follow up with Dr. Herman within the next week. If you are unable to see Dr. Herman in the next week, then please return to the emergency department for a recheck. Prescriptions: Cephalexin Monohydrate [Keflex 500 mg Capsule] 500 mg PO Q6H 7 Days #28 capsule Hydrocodone/Acetaminophen [[place] 5-325 mg Tablet] 1 tab PO Q6 PRN 3 Days #12 tablet PRN Reason: Referrals: YARIEL HERMAN MD [COMMUNITY BASED STAFF] - Follow up in 1 week
--- NOTE | 2019-08-09 16:00 | RADIOLOGY REPORT (SQ) ---
EXAM DESCRIPTION: CT FACIAL AREA WITH IMAGES COMPLETED DATE/TIME: 08/09/2019 2:33 pm REASON FOR STUDY: facial pain. Pain around the right orbit and cheek. No reported injury. COMPARISON: CT head, 03/07/2017. TECHNIQUE: Post contrast images through the facial bones and orbits windowed for bone and soft tissu e. Additional coronal and sagittal reconstructed images reviewed. All images stored on PACS. All CT scanners at this facility use dose modulation, iterative reconstruction, and/or weight based d osing when appropriate to reduce radiation dose to as low as reasonably achievable (ALARA). [facility]: Dose Right [facility]: CareDose [facility]: Dose Right [facility]: Teradose 4D [facility]: YeahMobi CONTRAST TYPE AND DOSE: contrast/concentration: Isovue 350.00 mg/ml; Total Contrast Delivered: 75.0 ml; Total Saline Delivered: 55.0 ml RENAL FUNCTION: GFR > 60. RADIATION DOSE: CT Rad equipment meets quality standard of care and radiation dose reduction techniq ues were employed. CTDIvol: 30.4 mGy. DLP: 597 mGy-cm. . LIMITATIONS: None. FINDINGS: FACIAL BONES: No fracture or bone lesion. ORBITS: Intact. No fracture. Symmetric intact globes and retroorbital soft tissues. PARANASAL SINUSES: Clear. No significant mucosal thickening, mass or fluid. No nasal polyps. Maxilla ry sinus outlets are patent. SOFT TISSUES: No mass or edema. No abnormal enhancement. INFERIOR BRAIN: Limited view. No acute findings. OTHER: No other significant finding. IMPRESSION: No CT abnormality of the facial bones or soft tissues. No abnormality to explain the pa tient's symptoms. TECHNICAL DOCUMENTATION: JOB ID: [id number] Quality ID # [id number]: Final reports with documentation of one or more dose reduction techniques (e.g., Au tomated exposure control, adjustment of the mA and/or kV according to patient size, use of iterative reconstruction technique) 2010 [employer]- All Rights Reserved Reading location - IP/workstation name: [email or web address]
[2019-08-09 17:43] VITALS: BP 142/78
== END 2019-08-09 17:43 | disposition home or self-care (01) ==
LOC: ER 13:22
DX: G50.0 Trigeminal neuralgia (principal); Z87.891 Personal history of nicotine dependence; I10 Essential (primary) hypertension
CPT/HCPCS: 99284; 96374; 36415; 85025; 80053; 70487; J1885

== ENCOUNTER 2019-09-18 10:57 | Emergency (ER) | payer MEDICARE, MEDICAID ==
--- NOTE | 2019-09-18 11:08 | ER Document Report ---
ED Medical Screen (RME) - General Chief Complaint: Jaw Pain Stated Complaint: FACIAL PAIN Time Seen by Provider: 09/18/19 11:07 Information source: Patient Notes: This 64-year-old female presented to the emergency room today stating that she has right upper jaw pain extending up into the orbital area she has tearing she is quite uncomfortable she has had this couple of times over the last 4 years. I greeted and performed a rapid initial assessment of this patient. Comprehensive ED assessment and evaluation of the patient, analysis of test results and completion of the medical decision making process will be conducted by additional ED providers. TRAVEL OUTSIDE OF THE [place] IN LAST 30 DAYS: No - Related Data Allergies/Adverse Reactions: No Known Allergies Allergy (Verified 02/28/18 18:30) Past Medical History - Past Medical History Cardiac Medical History: Reports: Hx Hypertension Neurological Medical History: Reports: Hx Seizures Renal/ Medical History: Denies: Hx Peritoneal Dialysis Past Surgical History: Reports: Hx Section - 2, Hx Cholecystectomy - unsure may have been removal gall stones - Immunizations Hx Diphtheria, Pertussis, Tetanus Vaccination: Yes - unknown Physical Exam - Vital signs Vitals: Temp Pulse Resp BP Pulse Ox 97.8 F 82 16 197/104 H 97 09/18/19 11:01 09/18/19 11:09/18/19 11:09/18/19 11:01 09/18/19 11:01 Course - Vital Signs Vital signs: Temp Pulse Resp BP Pulse Ox 97.8 F 82 16 197/104 H 97 09/18/19 11:01 09/18/19 11:01 09/18/19 11:09/18/19 11:01 09/18/19 11:01
[2019-09-18 11:39] LABS: ABSOLUTE BASOPHILS # (AUTO) 0.1 10^3/uL (0.0-0.2); ABSOLUTE EOSINOPHILS # (AUTO) 0.1 10^3/uL (0.0-0.6); ABSOLUTE LYMPHOCYTES (AUTO) 2.5 10^3/uL (0.5-4.7); ABSOLUTE MONOCYTES (AUTO) 0.5 10^3/uL (0.1-1.4); ABSOLUTE NEUT (AUTO) 4.8 10^3/uL (1.7-8.2); BASOPHILS % (AUTO) 1.3 % (0-2); EOSINOPHILS % (AUTO) 1.6 % (0-6); HEMATOCRIT 42.9 % (36.0-47.0); HEMOGLOBIN 14.9 g/dL (12.0-15.5); LYMPHOCYTES % (AUTO) 31.1 % (13-45); MEAN CORPUSCULAR HEMOGLOBIN 31.5 pg (27.0-33.4); MEAN CORPUSCULAR HGB CONC 34.8 g/dL (32.0-36.0); MEAN CORPUSCULAR VOLUME 91 fl (80-97); MONOCYTES % (AUTO) 6.1 % (3-13); PLATELET COUNT 313 10^3/uL (150-450); RED BLOOD COUNT 4.74 10^6/uL (3.72-5.28); RED CELL DISTRIBUTION WIDTH 13.7 % (11.5-14.0); SEGMENTED NEUTROPHILS % (AUTO) 59.9 % (42-78); TOTAL CELLS COUNTED % (AUTO) 100 %; WHITE BLOOD COUNT 7.9 10^3/uL (4.0-10.5)
[2019-09-18 11:58] LABS: ALBUMIN 4.4 g/dL (3.5-5.0); ALKALINE PHOSPHATASE 111 U/L (38-126); ANION GAP 8 (5-19); ASPARTATE AMINO TRANSFERASE 25 U/L (14-36); BILIRUBIN,TOTAL 0.7 mg/dL (0.2-1.3); BLOOD UREA NITROGEN 14 mg/dL (7-20); CALCIUM 9.6 mg/dL (8.4-10.2); CARBON DIOXIDE 23 mmol/L (22-30); CHLORIDE 106 mmol/L (98-107); GLUCOSE 108 mg/dL (75-110); POTASSIUM 4.2 mmol/L (3.6-5.0)
--- NOTE | 2019-09-18 12:13 | RADIOLOGY REPORT (SQ) ---
EXAM DESCRIPTION: CT FACIAL AREA WITHOUT IMAGES COMPLETED DATE/TIME: 09/18/2019 11:52 am REASON FOR STUDY: paun COMPARISON: None. TECHNIQUE: Noncontrasted images through the facial bones and orbits windowed for bone and soft tissu e. Additional coronal and sagittal reconstructed images reviewed. All images stored on PACS. All CT scanners at this facility use dose modulation, iterative reconstruction, and/or weight based d osing when appropriate to reduce radiation dose to as low as reasonably achievable (ALARA). [facility]: Dose Right [facility]: CareDose [facility]: Dose Right [facility]: Teradose 4D [facility]: [employer] RADIATION DOSE: CT Rad equipment meets quality standard of care and radiation dose reduction techniq ues were employed. CTDIvol: 30.4 mGy. DLP: 602 mGy-cm. mGy. LIMITATIONS: None. FINDINGS: FACIAL BONES: No fracture or bone lesion. ORBITS: Intact. No fracture. Symmetric intact globes and retroorbital soft tissues. PARANASAL SINUSES: Clear. No significant mucosal thickening, mass or fluid. No nasal polyps. Maxill zeeshan sinus outlets are patent. SOFT TISSUES: No mass or edema. INFERIOR BRAIN: Limited view. No acute findings. OTHER: No other significant finding. IMPRESSION: NO ACUTE FINDINGS. TECHNICAL DOCUMENTATION: JOB ID: [id number] [place]-72 Quality ID # [id number]: Final reports with documentation of one or more dose reduction techniques (e.g., Au tomated exposure control, adjustment of the mA and/or kV according to patient size, use of iterative reconstruction technique) 2010 [employer]- All Rights Reserved Reading location - IP/workstation name: [employer]
[2019-09-18] MEDS ORDERED: FENTANYL CITRATE INJ/PF 100 MCG/2 ML AMPUL IV ONE ×2 (15:49→17:04)
[2019-09-18] MEDS ORDERED: GABAPENTIN 100 MG CAPSULE PO ONE (15:50)
--- NOTE | 2019-09-18 15:52 | ER Document Report ---
ED Oral Problem - General Chief Complaint: Mouth Problem Stated Complaint: FACIAL PAIN Time Seen by Provider: 09/18/19 15:07 Primary Care Provider: MONY SINGH MD [NO LOCAL MD] - Follow up in 3-5 days Information source: Patient Notes: Patient presents with a 2-day history of right side facial pain, tearing and nasal congestion. Patient denies any fever nausea or vomiting. Patient states she has had similar episodes as this in the past with her last episode about 2 years ago. Patient states that she has seen other providers and no one was able to give her specific diagnosis. TRAVEL OUTSIDE OF THE [place] IN LAST 30 DAYS: No - HPI Patient complains to provider of: Other - Facial pain Onset: Other - 2 days Quality of pain: Throbbing Pain Level: 5 Associated symptoms: Facial pain. denies: Decreased appetite, Fever, Toothache Relieved by: Nothing Similar symptoms previously: Yes Recently seen / treated by doctor/dentist: No - Related Data Allergies/Adverse Reactions: No Known Allergies Allergy (Verified 02/28/18 18:30) Past Medical History - General Information source: Patient - Social History Smoking Status: Never Smoker Frequency of alcohol use: None Drug Abuse: None Lives with: Family Family History: None, Reviewed & Not Pertinent Patient has homicidal ideation: No - Past Medical History Cardiac Medical History: Reports: Hx Hypertension Neurological Medical History: Reports: Hx Seizures Renal/ Medical History: Denies: Hx Peritoneal Dialysis Past Surgical History: Reports: Hx Section - 2, Hx Cholecystectomy - unsure may have been removal gall stones - Immunizations Hx Diphtheria, Pertussis, Tetanus Vaccination: Yes - unknown Review of Systems - Review of Systems Constitutional: No symptoms reported. denies: Fever EENT: Tearing, Nose congestion Cardiovascular: No symptoms reported Respiratory: No symptoms reported Gastrointestinal: No symptoms reported. denies: Nausea, Vomiting Genitourinary: No symptoms reported Female Genitourinary: No symptoms reported Musculoskeletal: No symptoms reported Skin: No symptoms reported. denies: Rash Hematologic/Lymphatic: No symptoms reported Neurological/Psychological: Headaches Physical Exam - Vital signs Vitals: Temp Pulse Resp BP Pulse Ox 97.8 F 82 16 197/104 H 97 09/18/19 11:01 09/18/19 11:01 09/18/19 11:01 09/18/19 11:09/18/19 11:01 - General General appearance: Appears well, Alert In distress: Mild - HEENT Head: Normocephalic Eyes: Tears - Right eye tearing Conjunctiva: Normal Extraocular movements intact: Yes Eyelashes: Normal Pupils: PERRL Ears: Normal External canal: Normal Nasal: Normal Mouth/Lips: Normal Mucous membranes: Normal Neck: Normal, Supple. No: Lymphadenopathy, Meningismus - Respiratory Respiratory status: No respiratory distress Chest status: Nontender Breath sounds: Normal. No: Rales, Rhonchi, Stridor, Wheezing Chest palpation: Normal - Cardiovascular Rhythm: Regular Heart sounds: S1 appreciated, S2 appreciated Murmur: No - Abdominal Inspection: Obese Distension: No distension Tenderness: Nontender - Back Back: Normal - Neurological Neuro grossly intact: Yes Cognition: Normal [place] Coma Scale Eye Opening: Spontaneous [place] Coma Scale Verbal: Oriented [place] Coma Scale Motor: Obeys Commands [place] Coma Scale Total: 15 Speech: Normal Cranial nerves: Normal. No: Facial palsy, Tongue deviation - Psychological Associated symptoms: Normal affect, Normal mood - Skin Skin Temperature: Warm Skin Moisture: Dry Skin Color: Normal Course - Re-evaluation Re-evalutation: 09/18/19 17:04 Patient reports pain is markedly improved and is down to 2/5 scale, additional pain medication ordered at this time. 09/18/19 17:44 Patient presents worrisome for possible cluster headache, pain resolved at this time. The patient presents with headache without signs of GROCERY CARRIER bleed, stroke, infection, or other serious etiology. The patient is neurologically intact. Given the extremely low risk of these diagnoses further testing and evaluation for these possibilities does not appear to be indicated at this time. The patient has been instructed to return if the symptoms worsen or change in any way. Patient encouraged to follow-up with neurologist for further management 09/18/19 17:47 - Vital Signs Vital signs: Temp Pulse Resp BP Pulse Ox 98 F 72 16 151/95 H 99 09/18/19 18:21 09/18/19 18:21 09/18/19 18:21 09/18/19 18:21 09/18/19 18:21 - Laboratory Result Diagrams: 09/18/19 11:25 09/18/19 11:25 Laboratory results interpreted by me: 09/18/19 11:25 Sodium 136.6 L Discharge - Discharge Clinical Impression: Facial pain Headache Qualifiers: Headache type: unspecified Headache chronicity pattern: unspecified pattern Intractability: not intractable Qualified Code(s): R51 - Headache Condition: Stable Disposition: HOME, SELF-CARE Instructions: Headache ([facility]) Additional Instructions: Return immediately for any new or worsening symptoms Followup with your primary care provider, call tomorrow to make a followup martin ointment Follow-up with neurologist for further evaluation and management Prescriptions: Gabapentin [Neurontin 100 mg Capsule] 100 mg PO TID #15 capsule Referrals: MONY SINGH MD [NO LOCAL MD] - Follow up in 3-5 days
[2019-09-18] MEDS ORDERED: SUMATRIPTAN SUCCINATE INJ/PF 6 MG/0.5 ML SDV SUBCUT ONE (15:58)
[2019-09-18 18:22] VITALS: BP 151/95
== END 2019-09-18 18:49 | disposition home or self-care (01) ==
LOC: ER 10:57
DX: R51 Headache (principal); R09.81 Nasal congestion; I10 Essential (primary) hypertension; Z90.49 Acquired absence of other specified parts of digestive tract
CPT/HCPCS: 99284; 96372; 96374; 36415; 85025; 80053; 70486; J3010; A9270; J3030